=== PATIENT | male | born 1985 | race Caucasian/White ===

== ENCOUNTER 2022-09-09 05:36 | Inpatient (IN) | payer BC ==
[2022-09-09] MEDS ORDERED: Alum Hydrox/Mag Hydrox/Simeth 30 ML, Lidocaine 2% 15 ML PO ONE ×2 (05:49)
[2022-09-09] MEDS ORDERED: Sodium Chloride 0.9% 1,000 ML IV SCH (06:00)
[2022-09-09] MEDS ORDERED: Morphine 2 MG/ML SYRINGE IVPUSH ONE ×2 (06:15→06:57)
[2022-09-09] MEDS ORDERED: Iopamidol 612 MG/ML 100 ML Bottle IVPUSH ONE (06:59)
[2022-09-09] MEDS ORDERED: Morphine 4 MG/ML Syringe IVPUSH ONE (07:59)
[2022-09-09] MEDS ORDERED: LORazepam 2 MG/ML SDV IVPUSH ONE (09:01)
[2022-09-09] MEDS ORDERED: HYDROmorphone 0.5 MG/0.5 ML Syringe IVPUSH ONE (09:28)
[2022-09-09] MEDS: Lactated Ringers 1,000 ML IV SCH ×3 (09:37→23:02)
[2022-09-09] MEDS ORDERED: oxyCODONE 5 MG Tab PO PRN (09:53)
[2022-09-09] MEDS ORDERED: Thiamine 200 MG/2 ML MDV IVPUSH SCH (10:00)
[2022-09-09] MEDS ORDERED: Folic Acid 50 MG/10 ML MDV IV SCH (10:00)
[2022-09-09] MEDS: Famotidine 20 MG Tab PO SCH (10:16)
[2022-09-09] MEDS: Potassium Chloride 10 MEQ in Premix Bag 1 BAG IV SCH ×2 (10:16→12:28)
[2022-09-09] MEDS: Ondansetron 4 MG/2 ML SDV IV PRN ×2 (10:24→20:18)
[2022-09-09] MEDS: HYDROmorphone 0.5 MG/0.5 ML Syringe IVPUSH PRN ×6 (11:41→22:18)
[2022-09-09] MEDS ORDERED: Magnesium Sulfate/Water 2 GM in Premix Bag 1 BAG IV ONE (14:30)
[2022-09-09] MEDS: oxyCODONE 5 MG Tab PO PRN ×3 (14:54→23:31)
[2022-09-09] MEDS: Nicotine 14 MG/24 Hr Patch TRDERM SCH (20:07)
[2022-09-09] MEDS: LORazepam 2 MG/ML SDV IVPUSH PRN (20:35)
[2022-09-10] MEDS: HYDROmorphone 0.5 MG/0.5 ML Syringe IVPUSH PRN ×7 (00:24→20:21)
[2022-09-10] MEDS: oxyCODONE 5 MG Tab PO PRN ×5 (03:34→22:41)
[2022-09-10] MEDS: Lactated Ringers 1,000 ML IV SCH (05:15)
[2022-09-10] MEDS: Famotidine 20 MG Tab PO SCH (08:07)
[2022-09-10] MEDS: Folic Acid 1 MG Tab PO SCH (08:07)
[2022-09-10] MEDS: busPIRone 15 MG Tab PO SCH (08:07)
[2022-09-10] MEDS: Sertraline 50 MG Tab PO SCH (08:07)
[2022-09-10] MEDS: Nicotine 14 MG/24 Hr Patch TRDERM SCH (08:07)
[2022-09-10] MEDS: Docusate Sodium 100 MG Cap PO SCH ×2 (08:17→20:22)
[2022-09-10] MEDS: Thiamine 100 MG Tab PO SCH (08:17)
[2022-09-10] MEDS: Lidocaine 4% 1 each Patch TOP SCH (12:05)
[2022-09-10] MEDS: Dextrose 5%-0.9% NaCl with KCl 1,000 ML IV SCH (12:05)
[2022-09-11] MEDS: HYDROmorphone 0.5 MG/0.5 ML Syringe IVPUSH PRN ×4 (00:21→16:18)
[2022-09-11] MEDS: LORazepam 2 MG/ML SDV IVPUSH PRN ×4 (01:30→21:11)
[2022-09-11] MEDS: Dextrose 5%-0.9% NaCl with KCl 1,000 ML IV SCH ×2 (01:32→14:42)
[2022-09-11] MEDS: Lidocaine 4% 1 each Patch TOP SCH (09:03)
[2022-09-11] MEDS: Nicotine 14 MG/24 Hr Patch TRDERM SCH (09:05)
[2022-09-11] MEDS: busPIRone 15 MG Tab PO SCH (09:07)
[2022-09-11] MEDS: Famotidine 20 MG Tab PO SCH (09:07)
[2022-09-11] MEDS: Sertraline 50 MG Tab PO SCH (09:07)
[2022-09-11] MEDS: Thiamine 100 MG Tab PO SCH (09:07)
[2022-09-11] MEDS: Folic Acid 1 MG Tab PO SCH (09:08)
[2022-09-11] MEDS: Docusate Sodium 100 MG Cap PO SCH ×2 (09:08→21:10)
[2022-09-11] MEDS: Enoxaparin 40 MG/0.4 ML Syringe SUBCUT SCH (11:43)
[2022-09-11] MEDS: oxyCODONE 5 MG Tab PO PRN ×2 (14:30→21:10)
[2022-09-12] MEDS: HYDROmorphone 0.5 MG/0.5 ML Syringe IVPUSH PRN ×2 (01:02→05:44)
[2022-09-12] MEDS: oxyCODONE 5 MG Tab PO PRN (03:46)
[2022-09-12] MEDS: Dextrose 5%-0.9% NaCl with KCl 1,000 ML IV SCH ×2 (03:47→20:29)
[2022-09-12] MEDS ORDERED: HYDROmorphone 0.5 MG/0.5 ML Syringe IVPUSH PRN (07:19)
[2022-09-12] MEDS ORDERED: oxyCODONE 5 MG Tab PO PRN ×2 (07:19→13:54)
[2022-09-12] MEDS: Enoxaparin 40 MG/0.4 ML Syringe SUBCUT SCH (08:40)
[2022-09-12] MEDS: Folic Acid 1 MG Tab PO SCH (08:40)
[2022-09-12] MEDS: Docusate Sodium 100 MG Cap PO SCH ×2 (08:40→20:01)
[2022-09-12] MEDS: busPIRone 15 MG Tab PO SCH (08:40)
[2022-09-12] MEDS: Sertraline 50 MG Tab PO SCH (08:41)
[2022-09-12] MEDS: Thiamine 100 MG Tab PO SCH (08:41)
[2022-09-12] MEDS: Famotidine 20 MG Tab PO SCH (08:41)
[2022-09-12] MEDS: Nicotine 14 MG/24 Hr Patch TRDERM SCH (08:42)
[2022-09-12] MEDS: LORazepam 2 MG/ML SDV IVPUSH PRN ×4 (08:45→23:53)
[2022-09-12] MEDS: Lidocaine 4% 1 each Patch TOP SCH (08:45)
[2022-09-12] MEDS: Metoprolol Tartrate 25 MG Tab PO SCH ×2 (14:19→20:01)
[2022-09-12] MEDS ORDERED: QUEtiapine 25 MG Tab PO ONE (16:15)
[2022-09-12] MEDS ORDERED: LORazepam 1 MG Tab PO ONE (16:16)
[2022-09-12] MEDS: Ketorolac 30 MG/ML SDV IVPUSH SCH ×2 (16:41→23:39)
[2022-09-12] MEDS: QUEtiapine 25 MG Tab PO SCH (20:44)
[2022-09-13] MEDS ORDERED: LORazepam 2 MG/ML SDV IVPUSH ONE (00:48)
[2022-09-13] MEDS ORDERED: Haloperidol Lactate 5 MG/ML SDV IVPUSH ONE (00:50)
[2022-09-13] MEDS: chlordiazePOXIDE 25 MG Cap PO SCH ×3 (01:00→16:13)
[2022-09-13] MEDS: LORazepam 2 MG/ML SDV IVPUSH PRN ×5 (05:33→22:00)
[2022-09-13 05:49] LABS: ESTIMATED GFR 112 mL/min (>60)
[2022-09-13] MEDS: Ketorolac 30 MG/ML SDV IVPUSH SCH ×2 (08:06→16:13)
[2022-09-13] MEDS: Enoxaparin 40 MG/0.4 ML Syringe SUBCUT SCH (08:07)
[2022-09-13] MEDS: Famotidine 20 MG Tab PO SCH (08:07)
[2022-09-13] MEDS: Docusate Sodium 100 MG Cap PO SCH ×2 (08:07→20:13)
[2022-09-13] MEDS: Sertraline 50 MG Tab PO SCH (08:07)
[2022-09-13] MEDS: Thiamine 100 MG Tab PO SCH (08:07)
[2022-09-13] MEDS: Folic Acid 1 MG Tab PO SCH (08:08)
[2022-09-13] MEDS: busPIRone 15 MG Tab PO SCH (08:08)
[2022-09-13] MEDS: Metoprolol Tartrate 25 MG Tab PO SCH ×2 (08:08→20:13)
[2022-09-13] MEDS: Nicotine 14 MG/24 Hr Patch TRDERM SCH (08:09)
[2022-09-13] MEDS: HYDROmorphone 0.5 MG/0.5 ML Syringe IVPUSH PRN ×2 (08:17→18:24)
[2022-09-13] MEDS: Lidocaine 4% 1 each Patch TOP SCH (11:08)
[2022-09-13] MEDS: QUEtiapine 25 MG Tab PO SCH (20:15)
[2022-09-14] MEDS: Ketorolac 30 MG/ML SDV IVPUSH SCH ×3 (01:02→20:26)
[2022-09-14] MEDS: chlordiazePOXIDE 25 MG Cap PO SCH ×3 (01:03→16:15)
[2022-09-14] MEDS: LORazepam 2 MG/ML SDV IVPUSH PRN (07:45)
[2022-09-14] MEDS: Lidocaine 4% 1 each Patch TOP SCH ×2 (08:24→14:40)
[2022-09-14] MEDS: Nicotine 14 MG/24 Hr Patch TRDERM SCH (08:25)
[2022-09-14] MEDS: Sertraline 50 MG Tab PO SCH (08:26)
[2022-09-14] MEDS: Enoxaparin 40 MG/0.4 ML Syringe SUBCUT SCH (08:26)
[2022-09-14] MEDS: Docusate Sodium 100 MG Cap PO SCH ×2 (08:27→20:28)
[2022-09-14] MEDS: Folic Acid 1 MG Tab PO SCH (08:27)
[2022-09-14] MEDS: Thiamine 100 MG Tab PO SCH (08:27)
[2022-09-14] MEDS: busPIRone 15 MG Tab PO SCH (08:27)
[2022-09-14] MEDS: Famotidine 20 MG Tab PO SCH (08:27)
[2022-09-14] MEDS: Metoprolol Tartrate 25 MG Tab PO SCH (08:28)
[2022-09-14] MEDS: Potassium Chloride 20 MEQ Tab.ER PO SCH ×2 (10:27→20:28)
[2022-09-14] MEDS: oxyCODONE 5 MG Tab PO PRN (10:29)
[2022-09-14] MEDS ORDERED: LORazepam 1 MG Tab PO PRN (12:05)
[2022-09-14] MEDS ORDERED: Ketorolac 30 MG/ML SDV IVPUSH PRN (16:00)
[2022-09-14] MEDS: LORazepam 1 MG Tab PO PRN ×2 (17:22→20:27)
[2022-09-14] MEDS ORDERED: Acetaminophen 325 MG Tab PO PRN (19:45)
[2022-09-14] MEDS ORDERED: hydrALAZINE 20 MG/ML SDV IVPUSH SCH (19:45)
[2022-09-14] MEDS: hydrALAZINE 10 MG Tab PO SCH (20:28)
[2022-09-14] MEDS: QUEtiapine 25 MG Tab PO SCH (20:28)
[2022-09-15] MEDS: chlordiazePOXIDE 25 MG Cap PO SCH (01:45)
[2022-09-15] MEDS: Ketorolac 30 MG/ML SDV IVPUSH SCH ×2 (01:45→07:23)
[2022-09-15] MEDS: hydrALAZINE 10 MG Tab PO SCH ×2 (01:47→07:22)
[2022-09-15] MEDS: oxyCODONE 5 MG Tab PO PRN (07:22)
[2022-09-15] MEDS ORDERED: traMADol 50 MG Tab PO PRN (07:31)
[2022-09-15] MEDS: Enoxaparin 40 MG/0.4 ML Syringe SUBCUT SCH (08:21)
[2022-09-15] MEDS: Docusate Sodium 100 MG Cap PO SCH (08:22)
[2022-09-15] MEDS: Folic Acid 1 MG Tab PO SCH (08:22)
[2022-09-15] MEDS: Sertraline 50 MG Tab PO SCH (08:22)
[2022-09-15] MEDS: Nicotine 14 MG/24 Hr Patch TRDERM SCH (08:23)
[2022-09-15] MEDS: Famotidine 20 MG Tab PO SCH (08:23)
[2022-09-15] MEDS: busPIRone 15 MG Tab PO SCH (08:23)
[2022-09-15] MEDS: Thiamine 100 MG Tab PO SCH (08:23)
[2022-09-15] MEDS: Lidocaine 4% 1 each Patch TOP SCH (08:25)
[2022-09-15] MEDS ORDERED: Potassium Chloride 20 MEQ Tab.ER PO SCH (09:00)
== END 2022-09-15 13:07 | disposition home or self-care (01) | DRG 282 ==
LOC: JD.ED 05:36 → JD.OB 09:50 → JD.MS 09-10 04:44 → JD.ICU 09-14 09:58
PROVIDERS: ADMIT Internal Medicine; ATTEND Hospitalist
DX: K85.20 Alcohol induced acute pancreatitis without necrosis or infection (principal); F41.9 Anxiety disorder, unspecified; F32.A Depression, unspecified; E83.42 Hypomagnesemia; F11.21 Opioid dependence, in remission; K82.8 Other specified diseases of gallbladder; K80.20 Calculus of gallbladder without cholecystitis without obstruction; G35 Multiple sclerosis; H54.61 Unqualified visual loss, right eye, normal vision left eye; F10.131 Alcohol abuse with withdrawal delirium; K76.0 Fatty (change of) liver, not elsewhere classified; K59.00 Constipation, unspecified; G47.30 Sleep apnea, unspecified; E87.6 Hypokalemia; M54.42 Lumbago with sciatica, left side; R44.3 Hallucinations, unspecified; Z96.659 Presence of unspecified artificial knee joint; Z79.899 Other long term (current) drug therapy
CPT/HCPCS: 36415; 74177; 74177-26; 76705; 76705-26; 80048; 80053; 80306; 80307; 82150; 82947; 83690; 83735; 84100; 84478; 85025; 85027; 86140; 90792; 94760; 96361; 96365; 96375; 96376; 97162-GP; 99285; 99285-25; A9270-GY; J1170; J1630; J1650; J1885; J2060; J2270; J2405; J3411; J3475; J3480; J3490; J7030; J7120; Q3014; Q9967

== ENCOUNTER 2022-11-16 12:01 | Emergency (ER) | payer BC ==
[2022-11-16] MEDS ORDERED: Sodium Chloride 0.9% 1,000 ML IV ONE (12:28)
[2022-11-16] MEDS ORDERED: Sodium Chloride 0.9% 10 ML Syringe FLUSH PRN (12:28)
[2022-11-16] MEDS ORDERED: Ondansetron 4 MG/2 ML SDV IVPUSH ONE (12:29)
[2022-11-16] MEDS ORDERED: HYDROmorphone 0.5 MG/0.5 ML Syringe IVPUSH ONE (12:49)
[2022-11-16 12:56] LABS: BASOPHILS ABSOLUTE AUTO 0.05 K/mm3 (0.01-0.08); BASOPHILS PERCENT AUTO 0.9 % (0.1-1.2); EOSINOPHILS PERCENT AUTO 1.8 (0.8-7.0); HEMATOCRIT 45.4 % (40.1-51.0); HEMOGLOBIN 15.8 gm/dl (13.7-17.5); LYMPHOCYTES ABSOLUTE AUTO 1.09 K/mm3 (1.32-3.57); LYMPHOCYTES PERCENT AUTO 19.6 % (21.8-53.1); MEAN CORPUSCULAR HGB CONC 34.8 g/dl (32.2-35.5); MEAN PLATELET VOLUME 9.3 fl (9.4-12.3); MONOCYTES ABSOLUTE AUTO 0.43 K/mm3 (0.30-0.82); MONOCYTES PERCENT AUTO 7.7 % (5.3-12.2); PLATELET COUNT,PLT 111 K/mm3 (163-337); WHITE BLOOD CELL COUNT,WBC 5.57 K/mm3 (4.23-9.07)
[2022-11-16 13:24] LABS: A/G RATIO 1.1 (1-2); ANION GAP 15.1 (5-15); BILIRUBIN TOTAL 0.4 mg/dL (0.2-1.0); CALCIUM 8.5 mg/dL (8.5-10.1); EST CRCL DRUG DOSING (CG) 100.16 mL/min; ETHANOL BLOOD MEDICAL 0.21 gm% (0.00); MAGNESIUM 1.9 mg/dL (1.8-2.4); POTASSIUM,K 3.1 mEq/L (3.5-5.1); PROTEIN TOTAL,TP 7.5 g/dl (6.4-8.2)
[2022-11-16 13:28] LABS: C-REACTIVE PROTEIN <0.2 mg/dL (<1.0); LIPASE 339 U/L (73-393)
[2022-11-16] MEDS ORDERED: LORazepam 2 MG/ML SDV IVPUSH ONE (13:31)
[2022-11-16] MEDS ORDERED: Potassium Chloride 20 MEQ Tab.ER PO ONE (13:32)
[2022-11-16 14:04] LABS: INR 1.04; PROTHROMBIN TIME 11.1 SECONDS (9.7-12.0)
[2022-11-16] MEDS ORDERED: cloNIDine 0.1 MG Tab PO ONE (14:21)
[2022-11-16] MEDS ORDERED: Ketorolac 30 MG/ML SDV IVPUSH ONE (14:22)
== END 2022-11-16 16:08 | disposition other institution (70) ==
LOC: JD.ED 12:01
DX: F10.10 Alcohol abuse, uncomplicated (principal); F17.210 Nicotine dependence, cigarettes, uncomplicated; Z79.899 Other long term (current) drug therapy
CPT/HCPCS: 36415; 80053; 80307; 83690; 83735; 85025; 85610; 86140; 96361; 96374; 96375; 99284; A9270; J1170; J1885; J2060; J2405; J3490; J7030

== ENCOUNTER 2023-02-23 11:59 | Inpatient (IN) | payer BC ==
[2023-02-23] MEDS ORDERED: Sodium Chloride 0.9% 1,000 ML IV STA (12:56)
[2023-02-23] MEDS ORDERED: HYDROmorphone 0.5 MG/0.5 ML Syringe IVPUSH ONE ×2 (13:14→14:30)
[2023-02-23] MEDS ORDERED: Ondansetron 4 MG/2 ML SDV IVPUSH ONE (13:14)
[2023-02-23 13:41] LABS: BASOPHILS PERCENT AUTO 1.7 % (0.0-1.0); EOSINOPHILS PERCENT AUTO 0.8 % (0.0-6.0); HEMATOCRIT 39.6 % (42.0-52.0); HEMOGLOBIN 13.9 gm/dl (14.0-18.0); IMMATURE GRAN ABSOLUTE AUTO 0.01 K/mm3 (0.00-0.05); IMMATURE GRAN PERCENT AUTO 0.4 % (0.0-0.4); LYMPHOCYTES ABSOLUTE AUTO 0.6 K/mm3 (1.0-4.8); LYMPHOCYTES PERCENT AUTO 25.4 % (24.0-44.0); MEAN CORPUSCULAR HGB CONC 35.1 g/dl (32.0-36.0); MEAN CORPUSCULAR VOLUME 91.2 fl (83.0-99.0); MEAN PLATELET VOLUME 10.5 fl (9.4-12.4); MONOCYTES ABSOLUTE AUTO 0.2 K/mm3 (0.0-0.8); NEUTROPHILS ABSOLUTE AUTO 1.5 K/mm3 (1.8-7.7); NEUTROPHILS PERCENT AUTO 61.7 % (41.0-71.0); PLATELET COUNT,PLT 64 K/mm3 (150-400); RED BLOOD CELL COUNT 4.34 M/mm3 (4.52-5.90)
[2023-02-23] MEDS: Sodium Chloride 0.9% 10 ML Syringe FLUSH PRN (13:45)
[2023-02-23 14:03] LABS: SLIDE REVIEW ABNORMAL SMEAR
[2023-02-23 14:16] LABS: A/G RATIO 1.2 (1-2); ALANINE AMINOTRANSFERASE,ALT 180 U/L (16-63); ALBUMIN 4.2 g/dl (3.4-5.0); ALKALINE PHOSPHATASE 182 U/L (46-116); ANION GAP 18.8 (5-15); ASPARTATE AMNIOTRANSFERASE,AST 365 U/L (15-37); BILIRUBIN TOTAL 1.1 mg/dL (0.2-1.0); BLOOD UREA NITROGEN,BUN 11 mg/dL (7-18); BUN/CREATININE RATIO 12.2 (14-18); C-REACTIVE PROTEIN <0.2 mg/dL (<1.0); CARBON DIOXIDE,CO2 28 mEq/L (21-32); CHLORIDE,CL 97 mEq/L (98-107); CREATININE 0.9 mg/dL (0.7-1.3); EST CRCL DRUG DOSING (CG) 111.29 mL/min; ESTIMATED GFR 112 mL/min (>60); ETHANOL BLOOD MEDICAL 0.27 gm% (0.00); GLUCOSE RANDOM 99 mg/dL (70-99); LIPASE 1160 U/L (73-393); POTASSIUM,K 3.8 mEq/L (3.5-5.1); PROTEIN TOTAL,TP 7.6 g/dl (6.4-8.2); SODIUM,NA 140 mEq/L (136-145); TSH 1.359 uIU/mL (0.358-3.74)
[2023-02-23 14:17] LABS: ACETAMINOPHEN 0 ug/mL (10-30)
[2023-02-23] MEDS ORDERED: Ondansetron 4 MG/2 ML SDV IV PRN (14:30)
[2023-02-23] MEDS ORDERED: Docusate Sodium 100 MG Cap PO PRN (14:30)
[2023-02-23] MEDS ORDERED: Ondansetron 4 MG Tab.DIS PO PRN (14:30)
[2023-02-23] MEDS ORDERED: Naloxone 0.4 MG/ML SDV IVPUSH PRN (14:30)
[2023-02-23] MEDS ORDERED: HYDROmorphone 0.5 MG/0.5 ML Syringe IVPUSH PRN (14:30)
[2023-02-23] MEDS: Heparin Sodium 5,000 Units/ML Vial SUBCUT SCH ×2 (16:43→22:03)
[2023-02-23] MEDS: Pantoprazole 40 MG Vial IV SCH (16:43)
[2023-02-23] MEDS: Sodium Chloride 0.9% 1,000 ML IV SCH ×2 (16:44→21:05)
[2023-02-23] MEDS: HYDROmorphone 1 MG/ML Syringe IVPUSH PRN ×3 (17:37→22:04)
[2023-02-23] MEDS: LORazepam 2 MG/ML SDV IV SCH ×2 (18:33→23:33)
[2023-02-23] MEDS: cloNIDine 0.1 MG Tab PO SCH (18:49)
[2023-02-23] MEDS: busPIRone 15 MG Tab PO SCH (20:46)
[2023-02-23 21:11] LABS: BARBITURATE SCREEN,URINE NEGATIVE (CUTOFF=200); BENZODIAZEPINES SCREEN,URINE PRESUMPTIVE POSITIVE (CUTOFF=150); BUPRENORPHINE SCREEN,URINE NEGATIVE (CUTOFF=10); METHADONE SCREEN, URINE NEGATIVE (CUT0FF=200); METHAMPHETAMINES SCREEN, URINE NEGATIVE (CUTOFF=500); OXYCODONE SCREEN,URINE NEGATIVE (CUT0FF=100); PROPOXYPHENE SCREEN,URINE NEGATIVE (CUTOFF=300); THC SCREEN,URINE 20 NG/ML NEGATIVE (CUTOFF=50)
[2023-02-23 21:29] LABS: AMPHETAMINES SCREEN, URINE NEGATIVE (CUTOFF=500)
[2023-02-24] MEDS: HYDROmorphone 1 MG/ML Syringe IVPUSH PRN ×4 (00:47→20:33)
[2023-02-24] MEDS: LORazepam 2 MG/ML SDV IV SCH ×10 (00:48→23:13)
[2023-02-24] MEDS: Sodium Chloride 0.9% 1,000 ML IV SCH ×4 (01:10→23:15)
[2023-02-24] MEDS: Heparin Sodium 5,000 Units/ML Vial SUBCUT SCH ×3 (05:31→22:28)
[2023-02-24 06:16] LABS: EOSINOPHILS ABSOLUTE AUTO 0.1 K/mm3 (0.0-0.4); EOSINOPHILS PERCENT AUTO 3.1 % (0.0-6.0); HEMATOCRIT 39.1 % (42.0-52.0); HEMOGLOBIN 13.4 gm/dl (14.0-18.0); LYMPHOCYTES ABSOLUTE AUTO 0.7 K/mm3 (1.0-4.8); LYMPHOCYTES PERCENT AUTO 24.4 % (24.0-44.0); MEAN CORPUSCULAR HEMOGLOBIN 32.2 pg (28.0-32.0); MEAN CORPUSCULAR HGB CONC 34.3 g/dl (32.0-36.0); MEAN PLATELET VOLUME 10.5 fl (9.4-12.4); MONOCYTES ABSOLUTE AUTO 0.3 K/mm3 (0.0-0.8); MONOCYTES PERCENT AUTO 9.4 % (0.0-8.0); NEUTROPHILS ABSOLUTE AUTO 1.8 K/mm3 (1.8-7.7); NEUTROPHILS PERCENT AUTO 62.1 % (41.0-71.0); PLATELET COUNT,PLT 50 K/mm3 (150-400); RED BLOOD CELL COUNT 4.16 M/mm3 (4.52-5.90); WHITE BLOOD CELL COUNT,WBC 2.87 K/mm3 (3.9-11.3)
[2023-02-24 06:49] LABS: A/G RATIO 1.3 (1-2); ALBUMIN 4.2 g/dl (3.4-5.0); ANION GAP 13.4 (5-15); BILIRUBIN TOTAL 1.5 mg/dL (0.2-1.0); BUN/CREATININE RATIO 11.1 (14-18); CALCIUM 8.9 mg/dL (8.5-10.1); CREATININE 0.9 mg/dL (0.7-1.3); EST CRCL DRUG DOSING (CG) 111.29 mL/min; POTASSIUM,K 4.4 mEq/L (3.5-5.1); PROTEIN TOTAL,TP 7.5 g/dl (6.4-8.2)
[2023-02-24 07:43] LABS: SLIDE REVIEW ABNORMAL SMEAR
[2023-02-24] MEDS: busPIRone 15 MG Tab PO SCH ×2 (08:19→20:00)
[2023-02-24] MEDS: Pantoprazole 40 MG Vial IV SCH (08:19)
[2023-02-24] MEDS: cloNIDine 0.1 MG Tab PO SCH (08:19)
[2023-02-24] MEDS: Sertraline 50 MG Tab PO SCH (08:19)
[2023-02-24] MEDS: Thiamine 200 MG/2 ML MDV IVPUSH SCH (08:19)
[2023-02-24] MEDS: Folic Acid 1 MG Tab PO SCH (08:19)
[2023-02-24] MEDS ORDERED: Thiamine 100 MG in Sodium Chloride 0.9% 50 ML IV SCH (09:00)
[2023-02-24] MEDS: LORazepam 2 MG/ML SDV IVPUSH SCH ×3 (09:04→19:51)
[2023-02-24] MEDS ORDERED: PHENobarbital Sodium 65 MG/ML SDV IVPUSH ONE (10:11)
[2023-02-24] MEDS ORDERED: PHENobarbital Sodium 65 MG/ML SDV IVPUSH PRN (19:17)
[2023-02-24] MEDS: LORazepam 1 MG Tab PO SCH (21:41)
[2023-02-24] MEDS: Sodium Chloride 0.9% 10 ML Syringe FLUSH PRN (22:30)
[2023-02-25] MEDS: LORazepam 2 MG/ML SDV IV SCH ×4 (00:35→23:51)
[2023-02-25] MEDS: LORazepam 2 MG/ML SDV IVPUSH SCH ×4 (02:31→20:31)
[2023-02-25] MEDS: Sodium Chloride 0.9% 1,000 ML IV SCH ×6 (02:59→22:28)
[2023-02-25] MEDS: LORazepam 1 MG Tab PO SCH ×3 (04:37→19:46)
[2023-02-25 06:24] LABS: A/G RATIO 1.2 (1-2); ALBUMIN 3.8 g/dl (3.4-5.0); ANION GAP 18.6 (5-15); BILIRUBIN TOTAL 1.8 mg/dL (0.2-1.0); BUN/CREATININE RATIO 11.4 (14-18); CALCIUM 9.1 mg/dL (8.5-10.1); CREATININE 0.7 mg/dL (0.7-1.3); EST CRCL DRUG DOSING (CG) 143.08 mL/min; POTASSIUM,K 3.6 mEq/L (3.5-5.1); PROTEIN TOTAL,TP 6.9 g/dl (6.4-8.2)
[2023-02-25] MEDS: Heparin Sodium 5,000 Units/ML Vial SUBCUT SCH ×3 (06:24→22:27)
[2023-02-25] MEDS ORDERED: PHENobarbital Sodium 65 MG/ML SDV IVPUSH PRN (07:34)
[2023-02-25] MEDS: HYDROmorphone 1 MG/ML Syringe IVPUSH PRN ×5 (07:41→21:24)
[2023-02-25] MEDS: Pantoprazole 40 MG Vial IV SCH (08:48)
[2023-02-25] MEDS: Folic Acid 1 MG Tab PO SCH (08:48)
[2023-02-25] MEDS: cloNIDine 0.1 MG Tab PO SCH (08:48)
[2023-02-25] MEDS: busPIRone 15 MG Tab PO SCH ×2 (08:48→20:33)
[2023-02-25] MEDS: Sertraline 50 MG Tab PO SCH (08:48)
[2023-02-25] MEDS: Thiamine 200 MG/2 ML MDV IVPUSH SCH (08:49)
[2023-02-26] MEDS: HYDROmorphone 1 MG/ML Syringe IVPUSH PRN ×7 (01:00→20:00)
[2023-02-26] MEDS: LORazepam 2 MG/ML SDV IVPUSH SCH ×4 (02:14→21:01)
[2023-02-26] MEDS: Sodium Chloride 0.9% 1,000 ML IV SCH ×2 (02:16→06:10)
[2023-02-26] MEDS: LORazepam 2 MG/ML SDV IV SCH ×3 (03:51→14:23)
[2023-02-26] MEDS ORDERED: PHENobarbital Sodium 65 MG/ML SDV IVPUSH ONE (04:31)
[2023-02-26] MEDS: Heparin Sodium 5,000 Units/ML Vial SUBCUT SCH ×3 (05:32→22:36)
[2023-02-26 05:57] LABS: BASOPHILS PERCENT AUTO 1.1 % (0.0-1.0); EOSINOPHILS ABSOLUTE AUTO 0.1 K/mm3 (0.0-0.4); EOSINOPHILS PERCENT AUTO 4.4 % (0.0-6.0); HEMATOCRIT 34.7 % (42.0-52.0); HEMOGLOBIN 12.2 gm/dl (14.0-18.0); IMMATURE GRAN ABSOLUTE AUTO 0.01 K/mm3 (0.00-0.05); IMMATURE GRAN PERCENT AUTO 0.4 % (0.0-0.4); LYMPHOCYTES ABSOLUTE AUTO 0.5 K/mm3 (1.0-4.8); LYMPHOCYTES PERCENT AUTO 18.1 % (24.0-44.0); MEAN CORPUSCULAR HEMOGLOBIN 32.5 pg (28.0-32.0); MEAN CORPUSCULAR HGB CONC 35.2 g/dl (32.0-36.0); MEAN CORPUSCULAR VOLUME 92.5 fl (83.0-99.0); MONOCYTES ABSOLUTE AUTO 0.3 K/mm3 (0.0-0.8); NEUTROPHILS ABSOLUTE AUTO 1.8 K/mm3 (1.8-7.7); PLATELET COUNT,PLT 49 K/mm3 (150-400); RED BLOOD CELL COUNT 3.75 M/mm3 (4.52-5.90); WHITE BLOOD CELL COUNT,WBC 2.71 K/mm3 (3.9-11.3)
[2023-02-26 06:10] LABS: A/G RATIO 1.1 (1-2); ALBUMIN 3.5 g/dl (3.4-5.0); ANION GAP 19.2 (5-15); BILIRUBIN TOTAL 1.5 mg/dL (0.2-1.0); BUN/CREATININE RATIO 11.4 (14-18); CALCIUM 8.7 mg/dL (8.5-10.1); CREATININE 0.7 mg/dL (0.7-1.3); EST CRCL DRUG DOSING (CG) 143.08 mL/min; POTASSIUM,K 3.2 mEq/L (3.5-5.1); PROTEIN TOTAL,TP 6.7 g/dl (6.4-8.2)
[2023-02-26 06:34] LABS: SLIDE REVIEW ABNORMAL SMEAR
[2023-02-26] MEDS: D5 1/2 NS w/ 20 mEq/L KCl 1,000 ML IV SCH ×2 (08:02→20:01)
[2023-02-26] MEDS: Potassium Chloride 10 MEQ in Premix Bag 1 BAG IV SCH ×4 (08:05→11:05)
[2023-02-26] MEDS: busPIRone 15 MG Tab PO SCH ×2 (08:11→20:00)
[2023-02-26] MEDS: Folic Acid 1 MG Tab PO SCH (08:11)
[2023-02-26] MEDS: Sertraline 50 MG Tab PO SCH (08:12)
[2023-02-26] MEDS: Pantoprazole 40 MG Vial IV SCH (08:12)
[2023-02-26] MEDS: cloNIDine 0.1 MG Tab PO SCH (08:12)
[2023-02-26] MEDS: Thiamine 200 MG/2 ML MDV IVPUSH SCH (08:14)
[2023-02-26 17:04] LABS: A/G RATIO 1.1 (1-2); ALBUMIN 3.8 g/dl (3.4-5.0); ANION GAP 16.8 (5-15); BILIRUBIN TOTAL 1.6 mg/dL (0.2-1.0); BUN/CREATININE RATIO 7.5 (14-18); CALCIUM 9.4 mg/dL (8.5-10.1); CREATININE 0.8 mg/dL (0.7-1.3); EST CRCL DRUG DOSING (CG) 125.2 mL/min; POTASSIUM,K 3.8 mEq/L (3.5-5.1); PROTEIN TOTAL,TP 7.3 g/dl (6.4-8.2)
[2023-02-26] MEDS: LORazepam 1 MG Tab PO SCH (20:00)
[2023-02-27] MEDS: LORazepam 1 MG Tab PO SCH ×3 (00:07→20:42)
[2023-02-27] MEDS: LORazepam 2 MG/ML SDV IVPUSH SCH (02:39)
[2023-02-27] MEDS: HYDROmorphone 1 MG/ML Syringe IVPUSH PRN ×4 (04:01→16:25)
[2023-02-27] MEDS: Heparin Sodium 5,000 Units/ML Vial SUBCUT SCH ×3 (06:14→22:54)
[2023-02-27] MEDS: Sertraline 50 MG Tab PO SCH (08:00)
[2023-02-27] MEDS: busPIRone 15 MG Tab PO SCH ×2 (08:00→20:41)
[2023-02-27] MEDS: Pantoprazole 40 MG Vial IV SCH (08:01)
[2023-02-27] MEDS: Thiamine 200 MG/2 ML MDV IVPUSH SCH (08:01)
[2023-02-27] MEDS: cloNIDine 0.1 MG Tab PO SCH (08:01)
[2023-02-27] MEDS: D5 1/2 NS w/ 20 mEq/L KCl 1,000 ML IV SCH (11:09)
[2023-02-27] MEDS: LORazepam 2 MG/ML SDV IV SCH ×2 (15:11→16:59)
[2023-02-27] MEDS ORDERED: traZODone 50 MG Tab PO ONE (21:00)
[2023-02-28] MEDS: HYDROmorphone 1 MG/ML Syringe IVPUSH PRN ×3 (00:16→20:10)
[2023-02-28] MEDS: D5 1/2 NS w/ 20 mEq/L KCl 1,000 ML IV SCH ×2 (00:20→13:53)
[2023-02-28] MEDS: LORazepam 1 MG Tab PO SCH (02:39)
[2023-02-28] MEDS: Heparin Sodium 5,000 Units/ML Vial SUBCUT SCH ×3 (06:42→22:59)
[2023-02-28] MEDS: Sertraline 50 MG Tab PO SCH (08:13)
[2023-02-28] MEDS: cloNIDine 0.1 MG Tab PO SCH (08:13)
[2023-02-28] MEDS: busPIRone 15 MG Tab PO SCH ×2 (08:13→20:10)
[2023-02-28] MEDS: Thiamine 200 MG/2 ML MDV IVPUSH SCH (08:13)
[2023-02-28] MEDS: Pantoprazole 40 MG Vial IV SCH (08:14)
[2023-02-28] MEDS: LORazepam 2 MG/ML SDV IV SCH (15:29)
[2023-02-28] MEDS: traZODone 50 MG Tab PO PRN (20:10)
[2023-03-01] MEDS: D5 1/2 NS w/ 20 mEq/L KCl 1,000 ML IV SCH ×2 (03:08→16:29)
[2023-03-01] MEDS: Heparin Sodium 5,000 Units/ML Vial SUBCUT SCH ×3 (06:28→23:26)
[2023-03-01 07:09] LABS: ANION GAP 15.5 (5-15); BUN/CREATININE RATIO 6.7 (14-18); CALCIUM 9.4 mg/dL (8.5-10.1); CREATININE 0.9 mg/dL (0.7-1.3); EST CRCL DRUG DOSING (CG) 111.29 mL/min; POTASSIUM,K 3.5 mEq/L (3.5-5.1)
[2023-03-01] MEDS: HYDROmorphone 1 MG/ML Syringe IVPUSH PRN (07:51)
[2023-03-01] MEDS: busPIRone 15 MG Tab PO SCH ×2 (08:22→22:20)
[2023-03-01] MEDS: Sertraline 50 MG Tab PO SCH (08:22)
[2023-03-01] MEDS: cloNIDine 0.1 MG Tab PO SCH (08:22)
[2023-03-01] MEDS: Thiamine 200 MG/2 ML MDV IVPUSH SCH (08:24)
[2023-03-01] MEDS: Pantoprazole 40 MG Vial IV SCH (08:25)
[2023-03-01] MEDS: Nicotine 14 MG/24 Hr Patch TRDERM SCH (09:10)
[2023-03-01] MEDS ORDERED: OLANZapine 5 MG Tab PO ONE (09:30)
[2023-03-01] MEDS ORDERED: Zolpidem 10 MG Tab PO PRN (12:00)
[2023-03-01] MEDS ORDERED: PHENobarbital Sodium 65 MG/ML SDV IVPUSH ONE (13:30)
[2023-03-01] MEDS ORDERED: LORazepam 2 MG/ML SDV IVPUSH ONE ×2 (13:30→13:52)
[2023-03-01] MEDS ORDERED: LORazepam 2 MG/ML SDV ONE ×2 (13:49→17:47)
[2023-03-01] MEDS ORDERED: LORazepam 1 MG Tab PO PRN (17:36)
[2023-03-01] MEDS ORDERED: LORazepam 1 MG Tab PO SCH (18:00)
[2023-03-01] MEDS: LORazepam 2 MG/ML SDV IV SCH ×2 (18:44→23:29)
[2023-03-02] MEDS: traZODone 50 MG Tab PO PRN ×2 (00:28→21:16)
[2023-03-02] MEDS: busPIRone 15 MG Tab PO SCH ×3 (00:28→20:39)
[2023-03-02] MEDS: D5 1/2 NS w/ 20 mEq/L KCl 1,000 ML IV SCH (05:15)
[2023-03-02] MEDS ORDERED: hydrALAZINE 20 MG/ML SDV IVPUSH ONE ×2 (05:24→22:48)
[2023-03-02] MEDS ORDERED: hydrALAZINE 20 MG/ML SDV ONE (05:29)
[2023-03-02] MEDS: Heparin Sodium 5,000 Units/ML Vial SUBCUT SCH ×3 (05:37→21:52)
[2023-03-02 05:39] LABS: BASOPHILS PERCENT AUTO 0.9 % (0.0-1.0); EOSINOPHILS ABSOLUTE AUTO 0.1 K/mm3 (0.0-0.4); EOSINOPHILS PERCENT AUTO 3.8 % (0.0-6.0); IMMATURE GRAN ABSOLUTE AUTO 0.02 K/mm3 (0.00-0.05); IMMATURE GRAN PERCENT AUTO 0.6 % (0.0-0.4); LYMPHOCYTES ABSOLUTE AUTO 0.7 K/mm3 (1.0-4.8); MEAN CORPUSCULAR HEMOGLOBIN 32.2 pg (28.0-32.0); MEAN CORPUSCULAR HGB CONC 35.4 g/dl (32.0-36.0); MEAN CORPUSCULAR VOLUME 90.9 fl (83.0-99.0); MEAN PLATELET VOLUME 9.8 fl (9.4-12.4); MONOCYTES ABSOLUTE AUTO 0.7 K/mm3 (0.0-0.8); MONOCYTES PERCENT AUTO 20.7 % (0.0-8.0); NEUTROPHILS ABSOLUTE AUTO 1.8 K/mm3 (1.8-7.7); PLATELET COUNT,PLT 136 K/mm3 (150-400); RED BLOOD CELL COUNT 4.29 M/mm3 (4.52-5.90); WHITE BLOOD CELL COUNT,WBC 3.43 K/mm3 (3.9-11.3)
[2023-03-02 05:46] LABS: HEMOGLOBIN 13.8 gm/dl (14.0-18.0)
[2023-03-02 06:31] LABS: ALBUMIN 3.5 g/dl (3.4-5.0); ANION GAP 16.5 (5-15); BILIRUBIN TOTAL 0.8 mg/dL (0.2-1.0); BUN/CREATININE RATIO 7.5 (14-18); CALCIUM 9.2 mg/dL (8.5-10.1); CREATININE 0.8 mg/dL (0.7-1.3); EST CRCL DRUG DOSING (CG) 125.2 mL/min; POTASSIUM,K 3.5 mEq/L (3.5-5.1); PROTEIN TOTAL,TP 6.9 g/dl (6.4-8.2)
[2023-03-02 06:52] LABS: SLIDE REVIEW ABNORMAL SMEAR
[2023-03-02] MEDS: Pantoprazole 40 MG Vial IV SCH (08:08)
[2023-03-02] MEDS: Nicotine 14 MG/24 Hr Patch TRDERM SCH (08:11)
[2023-03-02] MEDS: Thiamine 200 MG/2 ML MDV IVPUSH SCH (08:11)
[2023-03-02] MEDS: Sertraline 50 MG Tab PO SCH (08:12)
[2023-03-02] MEDS: cloNIDine 0.1 MG Tab PO SCH (08:12)
[2023-03-03] MEDS: D5 1/2 NS w/ 20 mEq/L KCl 1,000 ML IV SCH (05:09)
[2023-03-03 05:37] LABS: BASOPHILS PERCENT AUTO 1.2 % (0.0-1.0); EOSINOPHILS ABSOLUTE AUTO 0.1 K/mm3 (0.0-0.4); HEMOGLOBIN 13.5 gm/dl (14.0-18.0); IMMATURE GRAN ABSOLUTE AUTO 0.01 K/mm3 (0.00-0.05); IMMATURE GRAN PERCENT AUTO 0.3 % (0.0-0.4); LYMPHOCYTES ABSOLUTE AUTO 0.7 K/mm3 (1.0-4.8); LYMPHOCYTES PERCENT AUTO 21.1 % (24.0-44.0); MEAN CORPUSCULAR HEMOGLOBIN 32.5 pg (28.0-32.0); MEAN CORPUSCULAR HGB CONC 35.5 g/dl (32.0-36.0); MEAN CORPUSCULAR VOLUME 91.6 fl (83.0-99.0); MEAN PLATELET VOLUME 10.2 fl (9.4-12.4); MONOCYTES ABSOLUTE AUTO 0.7 K/mm3 (0.0-0.8); MONOCYTES PERCENT AUTO 20.5 % (0.0-8.0); NEUTROPHILS ABSOLUTE AUTO 1.7 K/mm3 (1.8-7.7); NEUTROPHILS PERCENT AUTO 52.9 % (41.0-71.0); PLATELET COUNT,PLT 159 K/mm3 (150-400); RED BLOOD CELL COUNT 4.15 M/mm3 (4.52-5.90); WHITE BLOOD CELL COUNT,WBC 3.22 K/mm3 (3.9-11.3)
[2023-03-03] MEDS: Heparin Sodium 5,000 Units/ML Vial SUBCUT SCH ×3 (05:48→23:42)
[2023-03-03 06:05] LABS: A/G RATIO 0.9 (1-2); ALBUMIN 3.3 g/dl (3.4-5.0); ANION GAP 16.5 (5-15); BILIRUBIN TOTAL 0.8 mg/dL (0.2-1.0); BUN/CREATININE RATIO 5.6 (14-18); CREATININE 0.9 mg/dL (0.7-1.3); EST CRCL DRUG DOSING (CG) 111.29 mL/min; MAGNESIUM 1.3 mg/dL (1.8-2.4); POTASSIUM,K 3.5 mEq/L (3.5-5.1); PROTEIN TOTAL,TP 6.8 g/dl (6.4-8.2)
[2023-03-03 06:06] LABS: SLIDE REVIEW ABNORMAL SMEAR
[2023-03-03] MEDS: Losartan 50 MG Tab PO SCH (08:58)
[2023-03-03] MEDS: cloNIDine 0.1 MG Tab PO SCH (08:58)
[2023-03-03] MEDS: Sertraline 50 MG Tab PO SCH (08:58)
[2023-03-03] MEDS: busPIRone 15 MG Tab PO SCH ×2 (08:58→20:24)
[2023-03-03] MEDS: Thiamine 200 MG/2 ML MDV IVPUSH SCH (08:59)
[2023-03-03] MEDS: Nicotine 14 MG/24 Hr Patch TRDERM SCH (08:59)
[2023-03-03] MEDS: Ketorolac 15 MG/ML SDV IVPUSH PRN ×3 (11:42→23:41)
[2023-03-03] MEDS: Acetaminophen 325 MG Tab PO PRN (20:24)
[2023-03-03] MEDS: traZODone 50 MG Tab PO PRN (20:24)
[2023-03-04 05:38] LABS: EOSINOPHILS ABSOLUTE AUTO 0.1 K/mm3 (0.0-0.4); EOSINOPHILS PERCENT AUTO 1.8 % (0.0-6.0); HEMATOCRIT 36.7 % (42.0-52.0); HEMOGLOBIN 13.3 gm/dl (14.0-18.0); IMMATURE GRAN ABSOLUTE AUTO 0.01 K/mm3 (0.00-0.05); IMMATURE GRAN PERCENT AUTO 0.3 % (0.0-0.4); MEAN CORPUSCULAR HEMOGLOBIN 32.1 pg (28.0-32.0); MEAN CORPUSCULAR HGB CONC 36.2 g/dl (32.0-36.0); MEAN CORPUSCULAR VOLUME 88.6 fl (83.0-99.0); MEAN PLATELET VOLUME 10.2 fl (9.4-12.4); MONOCYTES ABSOLUTE AUTO 0.9 K/mm3 (0.0-0.8); MONOCYTES PERCENT AUTO 22.9 % (0.0-8.0); NEUTROPHILS ABSOLUTE AUTO 1.9 K/mm3 (1.8-7.7); PLATELET COUNT,PLT 204 K/mm3 (150-400); RED BLOOD CELL COUNT 4.14 M/mm3 (4.52-5.90); WHITE BLOOD CELL COUNT,WBC 3.88 K/mm3 (3.9-11.3)
[2023-03-04 05:59] LABS: ALBUMIN 3.5 g/dl (3.4-5.0); ANION GAP 18.8 (5-15); BILIRUBIN TOTAL 0.7 mg/dL (0.2-1.0); CALCIUM 8.8 mg/dL (8.5-10.1); EST CRCL DRUG DOSING (CG) 100.16 mL/min; MAGNESIUM 1.2 mg/dL (1.8-2.4); POTASSIUM,K 3.8 mEq/L (3.5-5.1)
[2023-03-04] MEDS: Ketorolac 15 MG/ML SDV IVPUSH PRN ×3 (05:59→23:06)
[2023-03-04] MEDS: Pantoprazole 40 MG Tab.CR PO SCH (06:00)
[2023-03-04] MEDS: Heparin Sodium 5,000 Units/ML Vial SUBCUT SCH ×3 (06:00→22:08)
[2023-03-04 06:20] LABS: SLIDE REVIEW ABNORMAL SMEAR
[2023-03-04] MEDS: cloNIDine 0.1 MG Tab PO SCH (08:38)
[2023-03-04] MEDS: Sertraline 50 MG Tab PO SCH (08:38)
[2023-03-04] MEDS: Nicotine 14 MG/24 Hr Patch TRDERM SCH (08:38)
[2023-03-04] MEDS: busPIRone 15 MG Tab PO SCH ×2 (08:38→20:42)
[2023-03-04] MEDS: Thiamine 200 MG/2 ML MDV IVPUSH SCH (08:39)
[2023-03-04] MEDS: Losartan 50 MG Tab PO SCH (08:40)
[2023-03-04] MEDS ORDERED: Magnesium Oxide 400 MG Tab PO ONE (10:45)
[2023-03-04] MEDS: Acetaminophen 325 MG Tab PO PRN (15:51)
[2023-03-04] MEDS: Thiamine 100 MG Tab PO SCH (20:42)
[2023-03-04] MEDS: Magnesium Oxide 400 MG Tab PO SCH (20:42)
[2023-03-04] MEDS: traZODone 50 MG Tab PO PRN (20:43)
[2023-03-05] MEDS: Ketorolac 15 MG/ML SDV IVPUSH PRN ×3 (05:17→18:19)
[2023-03-05] MEDS: Pantoprazole 40 MG Tab.CR PO SCH (05:19)
[2023-03-05] MEDS: Heparin Sodium 5,000 Units/ML Vial SUBCUT SCH ×3 (05:29→21:58)
[2023-03-05 05:33] LABS: BASOPHILS ABSOLUTE AUTO 0.1 K/mm3 (0.0-0.2); BASOPHILS PERCENT AUTO 1.3 % (0.0-1.0); EOSINOPHILS ABSOLUTE AUTO 0.1 K/mm3 (0.0-0.4); EOSINOPHILS PERCENT AUTO 1.9 % (0.0-6.0); HEMATOCRIT 35.3 % (42.0-52.0); HEMOGLOBIN 12.2 gm/dl (14.0-18.0); IMMATURE GRAN ABSOLUTE AUTO 0.02 K/mm3 (0.00-0.05); IMMATURE GRAN PERCENT AUTO 0.5 % (0.0-0.4); LYMPHOCYTES ABSOLUTE AUTO 0.9 K/mm3 (1.0-4.8); LYMPHOCYTES PERCENT AUTO 24.7 % (24.0-44.0); MEAN CORPUSCULAR HEMOGLOBIN 31.4 pg (28.0-32.0); MEAN CORPUSCULAR HGB CONC 34.6 g/dl (32.0-36.0); MEAN CORPUSCULAR VOLUME 90.7 fl (83.0-99.0); MEAN PLATELET VOLUME 10.5 fl (9.4-12.4); MONOCYTES ABSOLUTE AUTO 0.9 K/mm3 (0.0-0.8); MONOCYTES PERCENT AUTO 22.8 % (0.0-8.0); NEUTROPHILS ABSOLUTE AUTO 1.8 K/mm3 (1.8-7.7); NEUTROPHILS PERCENT AUTO 48.8 % (41.0-71.0); PLATELET COUNT,PLT 236 K/mm3 (150-400); RED BLOOD CELL COUNT 3.89 M/mm3 (4.52-5.90); WHITE BLOOD CELL COUNT,WBC 3.72 K/mm3 (3.9-11.3)
[2023-03-05 05:51] LABS: A/G RATIO 1.1 (1-2); ALBUMIN 3.4 g/dl (3.4-5.0); ANION GAP 14.8 (5-15); BILIRUBIN TOTAL 0.6 mg/dL (0.2-1.0); CALCIUM 8.8 mg/dL (8.5-10.1); EST CRCL DRUG DOSING (CG) 99.82 mL/min; MAGNESIUM 1.2 mg/dL (1.8-2.4); POTASSIUM,K 3.8 mEq/L (3.5-5.1); PROTEIN TOTAL,TP 6.6 g/dl (6.4-8.2)
[2023-03-05 06:07] LABS: SLIDE REVIEW ABNORMAL SMEAR
[2023-03-05] MEDS: busPIRone 15 MG Tab PO SCH ×2 (08:41→20:24)
[2023-03-05] MEDS: Nicotine 14 MG/24 Hr Patch TRDERM SCH (08:41)
[2023-03-05] MEDS: cloNIDine 0.1 MG Tab PO SCH (08:42)
[2023-03-05] MEDS: Losartan 100 MG Tab PO SCH (08:42)
[2023-03-05] MEDS: Sertraline 50 MG Tab PO SCH (08:43)
[2023-03-05] MEDS: Magnesium Oxide 400 MG Tab PO SCH ×2 (08:43→20:24)
[2023-03-05] MEDS: Magnesium Sulfate/Water 2 GM in Premix Bag 1 BAG IV SCH ×2 (08:50→15:18)
[2023-03-05] MEDS ORDERED: Magnesium Oxide 400 MG Tab PO SCH (09:00)
[2023-03-05] MEDS ORDERED: Acetaminophen 325 MG Tab PO PRN (09:00)
[2023-03-05] MEDS ORDERED: Ibuprofen 600 MG Tab PO PRN (12:00)
[2023-03-05] MEDS: Thiamine 100 MG Tab PO SCH (20:24)
[2023-03-06] MEDS: Ketorolac 15 MG/ML SDV IVPUSH PRN ×4 (00:36→19:34)
[2023-03-06] MEDS: traZODone 50 MG Tab PO PRN (00:37)
[2023-03-06] MEDS: Heparin Sodium 5,000 Units/ML Vial SUBCUT SCH ×3 (06:27→21:42)
[2023-03-06] MEDS: Pantoprazole 40 MG Tab.CR PO SCH (06:27)
[2023-03-06 06:31] LABS: ANION GAP 13.4 (5-15); CALCIUM 8.8 mg/dL (8.5-10.1); EST CRCL DRUG DOSING (CG) 99.82 mL/min; POTASSIUM,K 3.4 mEq/L (3.5-5.1)
[2023-03-06] MEDS: Losartan 100 MG Tab PO SCH (08:43)
[2023-03-06] MEDS: Magnesium Oxide 400 MG Tab PO SCH ×2 (08:43→21:42)
[2023-03-06] MEDS: busPIRone 15 MG Tab PO SCH ×2 (08:43→21:42)
[2023-03-06] MEDS: Nicotine 14 MG/24 Hr Patch TRDERM SCH (08:44)
[2023-03-06] MEDS: cloNIDine 0.1 MG Tab PO SCH (08:44)
[2023-03-06] MEDS: Sertraline 50 MG Tab PO SCH (08:44)
[2023-03-06] MEDS: Thiamine 100 MG Tab PO SCH (21:42)
[2023-03-07] MEDS: Ketorolac 15 MG/ML SDV IVPUSH PRN (01:35)
[2023-03-07] MEDS: Pantoprazole 40 MG Tab.CR PO SCH (06:24)
[2023-03-07] MEDS: Heparin Sodium 5,000 Units/ML Vial SUBCUT SCH (06:24)
== END 2023-03-07 06:20 | disposition home or self-care (01) | DRG 282 ==
LOC: JD.ED 11:59 → JD.MS 14:30 → JD.ICU 02-24 10:19 → JD.MS 03-04 15:35
PROVIDERS: ADMIT Hospitalist; ATTEND Hospitalist
DX: K85.20 Alcohol induced acute pancreatitis without necrosis or infection (principal); F10.221 Alcohol dependence with intoxication delirium; K70.10 Alcoholic hepatitis without ascites; G35 Multiple sclerosis; F41.9 Anxiety disorder, unspecified; F32.A Depression, unspecified; Z96.659 Presence of unspecified artificial knee joint; Z20.822 Contact with and (suspected) exposure to COVID-19; I10 Essential (primary) hypertension; E83.42 Hypomagnesemia; R45.1 Restlessness and agitation; Z79.899 Other long term (current) drug therapy; Z87.01 Personal history of pneumonia (recurrent); Z98.890 Other specified postprocedural states
CPT/HCPCS: 36415; 80048; 80053; 80143; 80179; 80306; 80307; 82947; 83690; 83735; 84443; 85025; 86140; 93005; 93010; 94761; 96361; 96374; 96375; 97116-GP; 97162-GP; 99285; 99285-25; A9270-GY; C9113; J0360; J1170; J1644; J1885; J2060; J2405; J2560; J3411; J3475; J3480; J3490; J7030; U0002